=== PATIENT | male | born 1980 | race Caucasian/White ===

== ENCOUNTER 2018-04-09 16:53 | Emergency (ER) | payer OTHER ==
[~2018-04-09] VITALS: Ht 167.6 cm; Wt 61.4 kg
[2018-04-09 17:28] VITALS: BP 132/101
[2018-04-09] MEDS ORDERED: DiphenhydrAMINE HCL 25 MG CAPSULE PO ONE (20:15)
[2018-04-09] MEDS ORDERED: ONDANSETRON HCL 4 MG/2 ML VIAL ONE (20:43)
== END 2018-04-09 21:01 | disposition home or self-care (01) ==
LOC: EMS 16:54
DX: F41.9 Anxiety disorder, unspecified (principal)
CPT/HCPCS: J2405

== ENCOUNTER 2018-04-09 22:28 | Emergency (ER) | payer OTHER ==
[~2018-04-09] VITALS: Ht 172.7 cm; Wt 79.5 kg
[2018-04-10] MEDS ORDERED: LORazepam 2 MG/ML VIAL IM ONE (03:00)
[2018-04-10 03:35] VITALS: BP 117/83
== END 2018-04-10 03:51 | disposition home or self-care (01) ==
LOC: EMS 22:29
DX: F41.9 Anxiety disorder, unspecified (principal)
CPT/HCPCS: 96372; 99284; J2060

== ENCOUNTER 2018-04-10 14:53 | Inpatient (IN) | payer MEDICAID, OTHER ==
[~2018-04-10] VITALS: Ht 162.6 cm; Wt 74.9 kg
[2018-04-10] MEDS ORDERED: LORazepam 2 MG TABLET PO ONE (15:30)
[2018-04-10 15:52] LABS: BASOPHILS % (AUTO) 0.4 % (0.0-2.0); EOSINOPHILS % (AUTO) 0.6 % (1.0-6.0); HEMATOCRIT 46.8 % (41-53); HEMOGLOBIN 15.7 g/dL (13.5-17.5); LYMPHOCYTES # (AUTO) 1.5 K/uL (1.0-4.8); LYMPHOCYTES % (AUTO) 19.5 % (22.0-44.0); MEAN CORPUSCULAR HEMOGLOBIN 26.5 pg (26.0-34.0); MEAN CORPUSCULAR HGB CONC 33.5 G/dL (31.0-37.0); MEAN CORPUSCULAR VOLUME 79 fL (80-100); MONOCYTES # (AUTO) 0.5 K/uL (0.1-1.0); MONOCYTES % (AUTO) 6.3 % (2.0-9.0); NEUTROPHILS # (AUTO) 5.8 K/uL (1.8-7.7); NEUTROPHILS % (AUTO) 73.2 % (40.0-70.0); PLATELET COUNT (AUTO) 319 K/uL (150-450); RED BLOOD CELL COUNT(AUTO) 5.93 MIL/uL (4.50-5.90); RED CELL DISTRIBUTION WIDTH 14.8 % (11.5-14.5)
[2018-04-10 16:04] LABS: ANION GAP 11 mmol/L (8-16); CALCIUM, TOTAL 9.3 mg/dL (8.8-10.5); CARBON DIOXIDE 27 mmol/L (22-29); CHLORIDE 102 mmol/L (98-107); GLOMERULAR FILTR. RATE CALC > 60 mL/min (>60); GLUCOSE,RANDOM 103 mg/dL (70-110); POTASSIUM 3.6 mmol/L (3.5-5.1); SODIUM SERUM 140 mmol/L (136-145); UREA NITROGEN, BLOOD 9 mg/dL (7-18)
[2018-04-10 16:10] LABS: ALANINE AMINOTRANSFERASE 33 U/L (12-78); ALBUMIN 4.1 g/dL (3.4-5.0); ALKALINE PHOSPHATASE 88 U/L (46-116); ASPARTATE AMINOTRANSFERASE 24 U/L (15-37); BILIRUBIN,TOTAL 0.7 mg/dL (0.1-1.0); TOTAL PROTEIN, SERUM 8.3 g/dL (6.4-8.2)
[2018-04-10] MEDS ORDERED: LORazepam 2 MG TABLET PO PRN (18:00)
[2018-04-10] MEDS ORDERED: ZOLPIDEM TARTRATE 10 MG TABLET PO PRN (18:00)
[2018-04-10] MEDS ORDERED: HALOPERIDOL 5 MG TABLET PO PRN (18:00)
[2018-04-10 20:45] VITALS: BP 120/79
[2018-04-11 00:46] VITALS: BP 107/80
[2018-04-11 08:29] VITALS: BP 104/61
[2018-04-11 08:29] LABS: HEMOGLOBIN A1C 5.5 % (4.5-6.2)
[2018-04-11 08:48] LABS: CHOL/HDL RATIO 10.3 (4.2-7.3); FREE T4 (FREE THYROXINE) 0.92 ng/dL (0.76-1.46); THYROID STIMULATING HORMONE 1.15 uIU/mL (0.36-3.74)
[2018-04-11 20:06] VITALS: BP 115/75
[2018-04-11] MEDS: QUEtiapine FUMARATE 200 MG TABLET PO SCH (20:49)
[2018-04-11 22:25] VITALS: BP 117/74
[2018-04-11] MEDS ORDERED: ACETAMINOPHEN 325 MG TABLET PO PRN (22:30)
[2018-04-11] MEDS ORDERED: IBUPROFEN 600 MG TABLET PO PRN (22:30)
[2018-04-12 06:18] VITALS: BP 120/75
[2018-04-12 08:44] VITALS: BP 107/77
[2018-04-12] MEDS: BENZTROPINE MESYLATE 1 MG TABLET PO SCH ×2 (09:11→16:51)
[2018-04-12] MEDS: QUEtiapine FUMARATE 100 MG TABLET PO SCH (09:11)
[2018-04-12] MEDS: DIVALPROEX SODIUM 500 MG DR TABLET PO SCH ×2 (09:11→16:51)
[2018-04-12 16:05] VITALS: BP 119/72
[2018-04-12] MEDS: QUEtiapine FUMARATE 200 MG TABLET PO SCH (20:31)
[2018-04-13 06:47] VITALS: BP 110/72
[2018-04-13 08:33] VITALS: BP 113/84
[2018-04-13] MEDS: DIVALPROEX SODIUM 500 MG DR TABLET PO SCH ×2 (08:55→16:49)
[2018-04-13] MEDS: QUEtiapine FUMARATE 100 MG TABLET PO SCH (08:55)
[2018-04-13] MEDS: BENZTROPINE MESYLATE 1 MG TABLET PO SCH ×2 (08:55→16:49)
[2018-04-13 16:32] VITALS: BP 107/86
[2018-04-13] MEDS: QUEtiapine FUMARATE 200 MG TABLET PO SCH (20:18)
[2018-04-14 07:18] VITALS: BP_SYST 105; BP_SYST 106; BP_DIAS 75; BP_DIAS 86
[2018-04-14 08:24] VITALS: BP 107/63
[2018-04-14] MEDS: BENZTROPINE MESYLATE 1 MG TABLET PO SCH ×2 (08:54→16:06)
[2018-04-14] MEDS: QUEtiapine FUMARATE 100 MG TABLET PO SCH (08:54)
[2018-04-14] MEDS: DIVALPROEX SODIUM 500 MG DR TABLET PO SCH ×2 (08:54→16:06)
[2018-04-14 16:10] VITALS: BP 104/67
[2018-04-14] MEDS: QUEtiapine FUMARATE 200 MG TABLET PO SCH (20:41)
[2018-04-15 00:43] VITALS: BP 120/63
[2018-04-15 08:36] VITALS: BP 129/89
[2018-04-15] MEDS: DIVALPROEX SODIUM 500 MG DR TABLET PO SCH ×2 (09:02→17:04)
[2018-04-15] MEDS: QUEtiapine FUMARATE 100 MG TABLET PO SCH (09:02)
[2018-04-15] MEDS: BENZTROPINE MESYLATE 1 MG TABLET PO SCH ×2 (09:02→17:04)
[2018-04-15 16:30] VITALS: BP 117/73
[2018-04-15] MEDS: QUEtiapine FUMARATE 200 MG TABLET PO SCH (20:38)
[2018-04-16 05:55] VITALS: BP 107/66
[2018-04-16] MEDS: QUEtiapine FUMARATE 100 MG TABLET PO SCH (08:37)
[2018-04-16] MEDS: BENZTROPINE MESYLATE 1 MG TABLET PO SCH ×2 (08:37→17:12)
[2018-04-16] MEDS: DIVALPROEX SODIUM 500 MG DR TABLET PO SCH ×2 (08:37→17:12)
[2018-04-16 08:41] VITALS: BP 110/68
[2018-04-16 16:36] VITALS: BP 110/75
[2018-04-16] MEDS: QUEtiapine FUMARATE 200 MG TABLET PO SCH (20:41)
[2018-04-17 00:47] VITALS: BP 114/62
[2018-04-17 08:28] VITALS: BP 109/71
[2018-04-17] MEDS: QUEtiapine FUMARATE 100 MG TABLET PO SCH (09:30)
[2018-04-17] MEDS: DIVALPROEX SODIUM 500 MG DR TABLET PO SCH ×2 (09:30→16:19)
[2018-04-17] MEDS: BENZTROPINE MESYLATE 1 MG TABLET PO SCH ×2 (09:30→16:19)
[2018-04-17] MEDS ORDERED: QUET200T PO (10:51)
[2018-04-17] MEDS ORDERED: DIVA-78 PO (10:51)
[2018-04-17] MEDS ORDERED: BENZ1TAB10 PO (10:51)
[2018-04-17] MEDS ORDERED: QUET100T PO (10:51)
[2018-04-17 16:07] VITALS: BP 122/82
[2018-04-17] MEDS: QUEtiapine FUMARATE 200 MG TABLET PO SCH (20:24)
[2018-04-18 06:38] VITALS: BP 108/66
[2018-04-18 08:15] VITALS: BP 111/63
[2018-04-18] MEDS ORDERED: OMEGA-3/DHA/EPA/FISH OIL 1,000 MG CAPSULE PO SCH (09:00)
[2018-04-18] MEDS: QUEtiapine FUMARATE 100 MG TABLET PO SCH (10:12)
[2018-04-18] MEDS: BENZTROPINE MESYLATE 1 MG TABLET PO SCH ×2 (10:13→16:10)
[2018-04-18] MEDS: DIVALPROEX SODIUM 500 MG DR TABLET PO SCH ×2 (10:13→16:10)
[2018-04-18 16:15] VITALS: BP 101/61
== END 2018-04-18 18:09 | disposition home or self-care (01) | DRG 750 ==
LOC: EMS 14:54 → B2S 19:00
PROVIDERS: ADMIT Psychiatry & Neurology Psychiatry; ATTEND Psychiatry & Neurology Psychiatry
DX: F25.9 Schizoaffective disorder, unspecified (principal); F41.9 Anxiety disorder, unspecified; R71.8 Other abnormality of red blood cells; Z79.899 Other long term (current) drug therapy
CPT/HCPCS: 83036; 84439; 84443; G0480

== ENCOUNTER 2018-04-24 14:30 | Emergency (ER) | payer MEDICAID, OTHER ==
[~2018-04-24] VITALS: Ht 165.1 cm; Wt 73.3 kg
[~2018-04-24 14:30] MED LIST: BENZ1TAB10 PO; DIVA-78 PO; QUET100T PO; QUET200T PO
[2018-04-24] MEDS ORDERED: ACETAMINOPHEN 500 MG TABLET PO ONE (15:15)
[2018-04-24] MEDS ORDERED: LORazepam 1 MG TABLET PO ONE (16:30)
[2018-04-24 18:00] VITALS: BP 120/72
== END 2018-04-24 18:58 | disposition home or self-care (01) ==
LOC: EMS 14:33
DX: M25.561 Pain in right knee (principal); M25.562 Pain in left knee; W18.39XA Other fall on same level, initial encounter; Y93.89 Activity, other specified; Y92.89 Other specified places as the place of occurrence of the external cause; Y99.8 Other external cause status

== ENCOUNTER 2018-04-25 14:15 | Emergency (ER) | payer OTHER ==
[~2018-04-25] VITALS: Ht 165.1 cm; Wt 72.7 kg
[2018-04-25 17:24] LABS: BASOPHILS % (AUTO) 0.5 % (0.0-2.0); EOSINOPHILS % (AUTO) 0.3 % (1.0-6.0); HEMATOCRIT 44.6 % (41-53); HEMOGLOBIN 15.4 g/dL (13.5-17.5); LYMPHOCYTES # (AUTO) 1.7 K/uL (1.0-4.8); LYMPHOCYTES % (AUTO) 21.2 % (22.0-44.0); MEAN CORPUSCULAR HGB CONC 34.5 G/dL (31.0-37.0); MEAN CORPUSCULAR VOLUME 78 fL (80-100); MONOCYTES # (AUTO) 0.4 K/uL (0.1-1.0); MONOCYTES % (AUTO) 5.2 % (2.0-9.0); NEUTROPHILS # (AUTO) 5.9 K/uL (1.8-7.7); NEUTROPHILS % (AUTO) 72.8 % (40.0-70.0); PLATELET COUNT (AUTO) 275 K/uL (150-450); RED BLOOD CELL COUNT(AUTO) 5.68 MIL/uL (4.50-5.90); RED CELL DISTRIBUTION WIDTH 14.4 % (11.5-14.5)
[2018-04-25 17:34] LABS: ANION GAP 8 mmol/L (8-16); CALCIUM, TOTAL 9.3 mg/dL (8.8-10.5); CARBON DIOXIDE 29 mmol/L (22-29); CHLORIDE 103 mmol/L (98-107); CREATININE 0.87 mg/dL (0.60-1.30); GLOMERULAR FILTR. RATE CALC > 60 mL/min (>60); GLUCOSE,RANDOM 93 mg/dL (70-110); POTASSIUM 3.5 mmol/L (3.5-5.1); SODIUM SERUM 140 mmol/L (136-145); UREA NITROGEN, BLOOD 12 mg/dL (7-18)
[2018-04-25 17:40] LABS: ALANINE AMINOTRANSFERASE 27 U/L (12-78); ALBUMIN 4.4 g/dL (3.4-5.0); ALKALINE PHOSPHATASE 74 U/L (46-116); ASPARTATE AMINOTRANSFERASE 21 U/L (15-37); BILIRUBIN,TOTAL 0.5 mg/dL (0.1-1.0); TOTAL PROTEIN, SERUM 8.4 g/dL (6.4-8.2)
[2018-04-25] MEDS ORDERED: IBUPROFEN 600 MG TABLET PO ONE (17:45)
[2018-04-25 17:58] LABS: VALPROIC ACID < 3 mcg/mL (50-100)
[2018-04-25 18:00] LABS: AMPHET/METH SCREEN,URINE NEGATIVE (NEGATIVE); BARBITURATE SCREEN, URINE NEGATIVE (NEGATIVE); BENZODIAZEPINES SCREEN,URINE NEGATIVE (NEGATIVE); CANNABINOID SCREEN,URINE NEGATIVE (NEGATIVE); COCAINE SCREEN,URINE NEGATIVE (NEGATIVE); METHADONE SCREEN, URINE NEGATIVE (NEGATIVE); OPIATE SCREEN,URINE NEGATIVE (NEGATIVE)
[2018-04-25 18:01] LABS: PHENCYCLIDINE SCREEN,URINE NEGATIVE (NEGATIVE)
[2018-04-25] MEDS ORDERED: LORazepam 2 MG/ML VIAL IM ONE (19:15)
[2018-04-25 20:17] VITALS: BP 122/74
== END 2018-04-25 20:31 | disposition home or self-care (01) ==
LOC: IOPBV 14:16
DX: F41.9 Anxiety disorder, unspecified (principal); M25.562 Pain in left knee; M25.561 Pain in right knee; Z79.899 Other long term (current) drug therapy; W18.39XA Other fall on same level, initial encounter; Y93.89 Activity, other specified; Y92.89 Other specified places as the place of occurrence of the external cause; Y99.8 Other external cause status
CPT/HCPCS: 36415; 80053; 80164; 80307; 85025; 96372; 99284; G0480; J2060